=== PATIENT | female | born 1960 | race Hispanic/Latino ===

== ENCOUNTER 2022-06-25 20:06 | Emergency (ER) | payer MEDICARE ==
[~2022-06-25] VITALS: Ht 157.5 cm; Wt 111.6 kg
[2022-06-25 22:32] LABS: BASOPHILS % (AUTO) 0.4 % (0.0-5.0); HEMATOCRIT 43.4 % (36-48); LYMPHOCYTES % (AUTO) 31.8 % (21.0-51.0); MEAN CORPUSCULAR HEMOGLOBIN 29.2 pg (27.0-33.0); MEAN CORPUSCULAR HGB CONC 34.6 g/dL (32.0-36.0); MEAN CORPUSCULAR VOLUME 84.6 fL (79-99); MONOCYTES % (AUTO) 8.5 % (3.0-13.0); NEUTROPHILS % (AUTO) 52.9 % (40.0-77.0); PLATELET COUNT (AUTO) 266 K/uL (130-400); RED BLOOD CELL COUNT(AUTO) 5.13 MIL/uL (4.00-5.50); RED CELL DISTRIBUTION WIDTH 12.5 % (11.0-15.5); WHITE BLOOD COUNT (AUTO) 9.2 K/uL (4.8-10.8)
[2022-06-25 22:48] LABS: CREATININE 0.6 mg/dL (0.5-1.5); POTASSIUM 3.9 mmol/L (3.5-5.1)
[2022-06-25 22:52] LABS: ALBUMIN 3.3 g/dL (3.5-5.0); TOTAL PROTEIN, SERUM 7.2 g/dL (6.0-8.3)
[2022-06-25] MEDS ORDERED: LACTATED RINGERS 1000ML 1,000 ML IV ONE (23:00)
[2022-06-25] MEDS ORDERED: MORPHINE 2 MG SYG IVP ONE (23:00)
[2022-06-25] MEDS ORDERED: KETOROLAC 30MG VIAL (30MG/ML) IVP ONE (23:00)
[2022-06-25] MEDS ORDERED: ONDANSETRON 4MG INJ IVP ONE (23:00)
[2022-06-25] MEDS ORDERED: IOHEXOL 350 MG/ML 100ML INFUS..BTL IV ONE (23:05)
[2022-06-26] MEDS ORDERED: IBUP-1493 PO (00:46)
[2022-06-26] MEDS ORDERED: OMEP40CA21 PO (00:46)
[2022-06-26 01:26] VITALS: BP 137/85
== END 2022-06-26 01:32 | disposition home or self-care (01) ==
LOC: EDH 20:06
DX: R10.11 Right upper quadrant pain (principal); I10 Essential (primary) hypertension; E11.9 Type 2 diabetes mellitus without complications; Z90.89 Acquired absence of other organs; Z90.49 Acquired absence of other specified parts of digestive tract
CPT/HCPCS: 99285; 74177; 96374; 76705; 96375; 96361; 82150; 84484; 80053; 83690; 85025; 36415; 93005; J7120; J2405; J1885; Q9967